=== PATIENT | male | born 1980 | race Two or more races ===

== ENCOUNTER 2018-12-21 22:24 | Emergency (ER) | payer SELFPAY ==
[~2018-12-21] VITALS: Ht 175.3 cm; Wt 74.8 kg
[2018-12-21 22:31] VITALS: BP 136/88
[2018-12-22] MEDS ORDERED: LIDOCAINE WITH 8.4% SOD BICARB 3 ML DISP.SYRIN. INJ ONE ×2
[2018-12-22] MEDS ORDERED: DIPHTH,PERTUSS(ACELL),TET TOX 0.5 ML DISP.SYRIN. VAX IM ONE
--- NOTE | 2018-12-22 00:53 | PHYS DOC ---
Past Medical History Past Medical History: No Pertinent History (TATYANA GARCIA APRN) Past Surgical History: Other Additional Past Surgical Histo: ESOPHAGUS SURG. (TATYANA GARCIA APRN) Alcohol Use: None Drug Use: None (TATYANA GARCIA APRN) Adult General Chief Complaint Chief Complaint: LACERATION/AVULSION HPI HPI Patient is a 38 year old male who presents with left shoulder laceration. Patient states he was moving a TV and a piece of sheet metal above him cut him. (TATYANA GARCIA APRN) Review of Systems Review of Systems Constitutional: Denies fever or chills [] Musculoskeletal: Denies back pain or joint pain [] Integument: Left shoulder laceration Neurologic: Denies headache, focal weakness or sensory changes [] All other systems were reviewed and found to be within normal limits, except as documented in this note. (TATYANA GARCIA APRN) Current Medications Current Medications Current Medications Medications (Trade) Dose Ordered Sig/Joe Start Time Stop Time Status Last Admin Dose Admin Diphtheria/ Tetanus/Acell Pertussis (Boostrix) 0.5 ml ONCE ONCE 12/22/18 00:00 12/22/18 00:01 DC 12/22/18 00:08 0.5 ML Lidocaine/Sodium Bicarbonate (Buffered Lidocaine 1%) 3 ml 1X ONCE 12/22/18 00:00 12/22/18 00:01 DC 12/22/18 00:20 3 ML (DELILAH BABCOCK MD) Allergies Allergies Allergies Coded Allergies Type Severity Reaction Last Updated Verified No Known Drug Allergies 12/21/18 No (DELILAH BABCOCK MD) Physical Exam Physical Exam Constitutional: Well developed, well nourished, no acute distress, non-toxic appearance. [] Skin: Left shoulder with a laceration approximately 4 cm long there is no obvious tendon involvement. Full range of motion to the left shoulder full range of motion to the left upper extremity. Adequate radial, medial, ulnar sensation to the left upper extremity. +2 left radial pulse. Cap refill less than 2 seconds the left fingers. Back: No tenderness, no CVA tenderness. [] Extremities: No tenderness, no cyanosis, no clubbing, ROM intact, no edema. [] Neurologic: Alert and oriented X 3, normal motor function, normal sensory function, no focal deficits noted. [] Psychologic: Affect normal, judgement normal, mood normal. [] (TATYANA GARCIA APRN) Current Patient Data Vital Signs Vital Signs Date Time Temp Pulse Resp B/P (MAP) Pulse Ox O2 Delivery O2 Flow Rate FiO2 12/21/18 22:31 98.2 98 16 136/88 (104) 98 Room Air 98.2 (DELILAH BABCOCK MD) EKG EKG [] (TATYANA GARCIA APRN) Radiology/Procedures Radiology/Procedures Laceration/Wound Repair Wound Location: Left shoulder laceration Wound's Depth, Shape: Vertical Wound Length (cm): Approximately 4 cm Wound Explored: clean Irrigated w/ Saline (ccs): 30 Betadine Prep?: Yes Anesthesia: 1% buffered lidocaine Volume Anesthetic (ccs): 4 mL Wound Repaired With: Vicryl Suture Size/Type: 3.0/interrupted sutures Number of Sutures: 8 Progress : Wound was covered with nonstick dressing (TATYANA GARCIA APRN) Course & Med Decision Making Course & Med Decision Making Pertinent Labs and Imaging studies reviewed. (See chart for details) This is a 38-year-old male patient presenting to the ED today with left shoulder laceration, laceration was repaired by me as noted in procedures, wound care instructions and return precautions provided. Tetanus updated. (TATYANA GARCIA APRN) Course & Med Decision Making Staff Physician Addendum: I was working in the ER during the course of this patient's visit. I was available for consultation as needed, but I was not directly involved in the care of this patient. (DELILAH BABCOCK MD) Dragon Disclaimer Dragon Disclaimer This electronic medical record was generated, in whole or in part, using a voice recognition dictation system. (TATYANA GARCIA APRN) Departure Departure Impression: Primary Impression: Laceration of left shoulder Disposition: HOME, SELF-CARE Condition: STABLE Referrals: NO PCP (PCP) Follow-up with your doctor in 1-2 weeks as needed Patient Instructions: Laceration Care, Adult, [id number] Additional Instructions: You were evaluated in the emergency room for left shoulder laceration, the laceration was closed with dissolvable stitches. Keep the area clean and dry. Remove the dressing after 24 hours, you can shower and wash the area after 24 hours. Apply Neosporin to the area twice a day. Do not soak the area. Monitor it for signs of infection including but not limited to increased redness, warmth, yellow drainage from the area and return to the ED if they occur. Problem Qualifiers Primary Impression: Laceration of left shoulder Encounter type: initial encounter Qualified Codes: S41.012A - Laceration w ithout foreign body of left shoulder, initial encounter TATYANA GARCIA APRN Dec 22, 2018 00:53 DELILAH BABCOCK MD Dec 22, 2018 21:43
== END 2018-12-22 01:00 | disposition home or self-care (01) ==
LOC: ER 22:24
DX: S41.012A Laceration without foreign body of left shoulder, initial encounter (principal); W26.8XXA Contact with other sharp object(s), not elsewhere classified, initial encounter; Y93.89 Activity, other specified; Y92.89 Other specified places as the place of occurrence of the external cause; Y99.8 Other external cause status
CPT/HCPCS: 12002; 90471; 90715; 99283